=== PATIENT | female | born 1995 | race Caucasian/White ===

== ENCOUNTER 2020-10-31 11:50 | Emergency (ER) | payer OTHER ==
[~2020-10-31] VITALS: Ht 157.5 cm; Wt 158.8 kg
[2020-10-31 12:48] LABS: HEMATOCRIT 42.8 % (37.0-47.0); HEMOGLOBIN 14.1 gm/dL (12.0-15.0); MCH 26.1 pg (26.0-34.0); MCHC 32.9 g/dL (28.0-37.0); MCV 79.2 fL (80.0-100.0); RBC 5.4 mil/uL (4.20-5.00); RDW 16.2 % (10.5-14.5); WBC 10.4 thou/uL (4.0-11.0)
[2020-10-31 12:49] LABS: URINE BILIRUBIN NEGATIVE (Negative); URINE BLOOD 3+ (Negative); URINE CLARITY CLOUDY; URINE COLOR RED; URINE GLUCOSE-RANDOM* NEGATIVE (Negative); URINE KETONES NEGATIVE (Negative); URINE LEUKOCYTES-REFLEX NEGATIVE (Negative); URINE NITRITE-REFLEX NEGATIVE (Negative); URINE PROTEIN (DIPSTICK) TRACE (Negative)
[2020-10-31 12:54] LABS: CALCIUM 8.8 mg/dL (8.5-10.1); CREATININE 0.8 mg/dL (0.6-1.0); POTASSIUM 3.9 mmol/L (3.5-5.1)
[2020-10-31 13:00] LABS: ALBUMIN 3.1 g/dL (3.4-5.0); TOTAL BILIRUBIN 0.3 mg/dL (0.2-1.0); TOTAL PROTEIN 6.7 g/dL (6.4-8.2)
[2020-10-31 13:01] LABS: BACTERIA-REFLEX 1-9 Few /HPF (None Seen); CASTS None Seen /LPF (None Seen); CRYSTALS None Seen /LPF (None Seen); SQUAMOUS 0-3 Few /LPF (0-3); URINE RBC >20 Many /HPF (NONE SEEN); URINE WBC-REFLEX 0-5 Rare /HPF (0-5)
[2020-10-31] MEDS ORDERED: BENADRYL25 MG PO (13:52)
[2020-10-31] MEDS ORDERED: NORCO5 PO (14:29)
[2020-10-31] MEDS ORDERED: ZOFRAN ODT4 MG PO (14:29)
[2020-10-31 14:36] VITALS: BP 126/79
--- NOTE | 2020-11-02 07:49 | EKG ---
[address] [address] ELECTROCARDIOGRAM REPORT Name: JAVIER QUINONES Room #: DEP KEVIN Lazcano#: [id number] Admission: 10/31/20 Attend Phys: Discharge: 10/31/20 Date of : [birth year] Report #: [id number] [facility] ED Test Date: 2020-10-31 Test Time: 12:00:21 Pat Name: JAVIER QUINONES Department: Room: Gender: F Baker Apprentice: NACHO : 1995 Requested By: [place] Order Number: [id number] MD: Jose Mcintyre Measurements Intervals [place] Rate: 100 P: 34 [place]: 126 QRS: 20 QRSD: 82 T: 8 QT: 349 QTc: 451 Interpretive Statements Sinus tachycardia No previous ECG available for comparison Electronically Signed On 11-02-2020 7:49:29 CDT by Jose Mcintyre [email or web address] <ELECTRONICALLY SIGNED> By: Jose Mcintyre MD, [facility] 11/02/20 0749 1200 [facility] Jose Mcintyre MD, FACC /EPI
== END 2020-10-31 14:42 | disposition home or self-care (01) ==
LOC: ER 11:50
PROVIDERS: Nurse Practitioner Family
DX: G89.18 Other acute postprocedural pain (principal); R11.0 Nausea; R42 Dizziness and giddiness; I10 Essential (primary) hypertension; R10.816 Epigastric abdominal tenderness

== ENCOUNTER 2020-11-07 21:03 | Emergency (ER) | payer OTHER ==
[~2020-11-07] VITALS: Ht 157.5 cm; Wt 132.4 kg
[~2020-11-07 21:03] MED LIST: BENADRYL25 MG PO; NORCO5 PO; ZOFRAN ODT4 MG PO
[2020-11-07] MEDS ORDERED: PREDNISONE 20 M20 MG PO (21:32)
[2020-11-07] MEDS ORDERED: REMERON30 M1 PO (21:32)
[2020-11-07] MEDS ORDERED: FLONASE 0.05%50 MCG NARES (21:33)
[2020-11-07] MEDS ORDERED: AMOXIL 875 MG875 M2 PO (21:33)
[2020-11-07] MEDS ORDERED: VENTOLIN HFA INH8 GM INH (21:34)
[2020-11-07 22:47] LABS: URINE BILIRUBIN NEGATIVE (Negative); URINE BLOOD 1+ (Negative); URINE CLARITY CLEAR; URINE COLOR YELLOW; URINE GLUCOSE-RANDOM* NEGATIVE (Negative); URINE KETONES NEGATIVE (Negative); URINE LEUKOCYTES-REFLEX TRACE (Negative); URINE NITRITE-REFLEX NEGATIVE (Negative); URINE PROTEIN (DIPSTICK) NEGATIVE (Negative); URINE SPECIFIC GRAVITY 1.025 (1.005-1.035); URINE UROBILINOGEN 0.2 E.U./dl (0.2-1.0)
[2020-11-07 22:55] LABS: ABSOLUTE NEUTROPHILS 11.5 thou/uL (1.4-8.2); BASOPHILS 0.8 % (0.0-2.0); HEMATOCRIT 41.4 % (37.0-47.0); HEMOGLOBIN 14.1 gm/dL (12.0-15.0); LYMPHOCYTES 21.2 % (24.0-44.0); MCH 26.7 pg (26.0-34.0); MCHC 34.2 g/dL (28.0-37.0); MONOCYTES 6.3 % (1.0-8.0); PLATELET COUNT 309 thou/uL (150-400); POLYS 70.7 % (36.0-66.0); RDW 16.5 % (10.5-14.5); WBC 16.3 thou/uL (4.0-11.0)
[2020-11-07 22:59] LABS: ANION GAP 11 mmol/L (7-16); BUN 14 mg/dL (7-18); CHLORIDE 105 mmol/L (98-107); CO2 24 mmol/L (21-32); CREATININE 0.9 mg/dL (0.6-1.0); GLUCOSE 133 mg/dL (74-106); POTASSIUM 3.9 mmol/L (3.5-5.1); SODIUM 140 mmol/L (136-145)
[2020-11-07 23:03] LABS: ALBUMIN 2.8 g/dL (3.4-5.0); DIRECT BILIRUBIN < 0.1 mg/dL (<0.1-0.2); LIPASE 137 U/L (73-393); SGOT 32 U/L (15-37); SGPT 66 U/L (14-59); TOTAL BILIRUBIN 0.2 mg/dL (0.2-1.0); TOTAL PROTEIN 6.2 g/dL (6.4-8.2)
[2020-11-07 23:06] LABS: BACTERIA-REFLEX 1-9 Few /HPF (None Seen); CALCIUM OXALATE >10 Many /LPF (None Seen); HYALINE CASTS 0-3 Few /LPF (None Seen); MUCUS 4-6 Moderate strn/LPF (None Seen); SQUAMOUS 4-10 Moderate /LPF (0-3); URINE RBC 3-10 Few /HPF (NONE SEEN); URINE WBC-REFLEX 0-5 Rare /HPF (0-5)
[2020-11-08] MEDS ORDERED: ZOFRAN ODT4 MG PO (00:41)
[2020-11-08 01:01] VITALS: BP 161/85
== END 2020-11-08 01:02 | disposition home or self-care (01) ==
LOC: ER 21:03
PROVIDERS: Nurse Practitioner
DX: R10.84 Generalized abdominal pain (principal); R11.2 Nausea with vomiting, unspecified; R19.7 Diarrhea, unspecified; I10 Essential (primary) hypertension; Z79.899 Other long term (current) drug therapy

== ENCOUNTER 2020-12-24 05:56 | Emergency (ER) | payer OTHER ==
[~2020-12-24] VITALS: Ht 157.5 cm; Wt 134.7 kg
[~2020-12-24 05:56] MED LIST changes: +AMOXIL 875 MG875 M2 PO; +FLONASE 0.05%50 MCG NARES; +PREDNISONE 20 M20 MG PO; +REMERON30 M1 PO; +VENTOLIN HFA INH8 GM INH
[2020-12-24 05:57] VITALS: BP 146/104
[2020-12-24 07:39] LABS: ABSOLUTE NEUTROPHILS 9.1 thou/uL (1.4-8.2); BASOPHILS 0.4 % (0.0-2.0); EOSINOPHILS 2.6 % (0.0-3.0); HEMATOCRIT 40.7 % (37.0-47.0); HEMOGLOBIN 13.2 gm/dL (12.0-15.0); LYMPHOCYTES 18.9 % (24.0-44.0); MCH 25.9 pg (26.0-34.0); MCHC 32.3 g/dL (28.0-37.0); MCV 80.1 fL (80.0-100.0); MONOCYTES 5.8 % (1.0-8.0); PLATELET COUNT 350 thou/uL (150-400); POLYS 72.3 % (36.0-66.0); RBC 5.08 mil/uL (4.20-5.00); RDW 15.3 % (10.5-14.5); WBC 12.6 thou/uL (4.0-11.0)
[2020-12-24 07:41] LABS: URINE BLOOD 3+ (Negative); URINE GLUCOSE-RANDOM* NEGATIVE (Negative); URINE KETONES NEGATIVE (Negative); URINE LEUKOCYTES-REFLEX NEGATIVE (Negative); URINE NITRITE-REFLEX NEGATIVE (Negative); URINE PROTEIN (DIPSTICK) 2+ (Negative); URINE SPECIFIC GRAVITY >= 1.030 (1.005-1.035); URINE UROBILINOGEN 0.2 E.U./dl (0.2-1.0)
[2020-12-24 07:48] LABS: URINE CLARITY TURBID; URINE COLOR RED
[2020-12-24 07:49] LABS: ICTOTEST (BILI CONFIRMATORY) Negative (Negative); URINE BILIRUBIN NEGATIVE (Negative)
[2020-12-24 07:49] LABS: CALCIUM 8.8 mg/dL (8.5-10.1); POTASSIUM 3.6 mmol/L (3.5-5.1)
[2020-12-24 07:51] LABS: BACTERIA-REFLEX 1-9 Few /HPF (None Seen); CASTS None Seen /LPF (None Seen); CRYSTALS None Seen /LPF (None Seen); SQUAMOUS 0-3 Few /LPF (0-3); URINE RBC >20 Many /HPF (NONE SEEN); URINE WBC-REFLEX 0-5 Rare /HPF (0-5)
== END 2020-12-24 08:13 | disposition home or self-care (01) ==
LOC: ER 05:56
PROVIDERS: Emergency Medicine
DX: N93.9 Abnormal uterine and vaginal bleeding, unspecified (principal); I10 Essential (primary) hypertension; Z98.890 Other specified postprocedural states; Z79.899 Other long term (current) drug therapy; Z79.82 Long term (current) use of aspirin; Z79.891 Long term (current) use of opiate analgesic

== ENCOUNTER 2021-05-28 06:59 | Emergency (ER) | payer OTHER ==
[~2021-05-28] VITALS: Ht 157.5 cm; Wt 140.6 kg
[2021-05-28 07:01] VITALS: BP 149/97
[2021-05-28] MEDS ORDERED: PREDNISONE 20 M20 MG PO (07:52)
== END 2021-05-28 07:54 | disposition home or self-care (01) ==
LOC: ER 06:59
DX: R21 Rash and other nonspecific skin eruption (principal); Z20.822 Contact with and (suspected) exposure to COVID-19; I10 Essential (primary) hypertension; Z90.49 Acquired absence of other specified parts of digestive tract; Z79.899 Other long term (current) drug therapy; Z79.51 Long term (current) use of inhaled steroids; Z79.891 Long term (current) use of opiate analgesic